=== PATIENT | male | born 1985 | race Caucasian/White ===

== ENCOUNTER 2017-03-09 19:04 | Emergency (ER) | payer OTHER ==
[~2017-03-09] VITALS: Ht 200.7 cm; Wt 130.0 kg
[2017-03-09 19:07] VITALS: BP 175/96
[2017-03-09] MEDS ORDERED: LISI5TAB7 PO (19:23)
[2017-03-09] MEDS ORDERED: ONDANSETRON ODT 4 MG PO ONE (19:30)
[2017-03-09] MEDS ORDERED: OXYcodone/APAP 5/325MG TABLET PO ONE (19:30)
[2017-03-09] MEDS ORDERED: ONDANSETRON ODT 4 MG ONE (19:32)
[2017-03-09] MEDS ORDERED: OXYcodone/APAP 5/325MG TABLET ONE (19:32)
== END 2017-03-09 20:39 | disposition home or self-care (01) ==
LOC: ED 20:00
DX: S93.401A Sprain of unspecified ligament of right ankle, initial encounter (principal); W11.XXXA Fall on and from ladder, initial encounter; Y93.89 Activity, other specified; Y92.098 Other place in other non-institutional residence as the place of occurrence of the external cause; Y99.8 Other external cause status
CPT/HCPCS: 73610; 73630; 99284; Q0162